=== PATIENT | female | born 1950 | race Caucasian/White ===

== ENCOUNTER → 2019-02-28 | Day surgery (SDC) | payer OTHER ==
--- OUTSIDE RECORDS SUMMARY | 2019-02-28 10:45 | XMS REPORT | Continuity of Care Document ---
:1950 Author Organization [employer] Care Team Providers Name Role Phone [employer] Unavailable Unavailable Problems No Data Provided for This Section Medications No Data Provided for This Section Allergies, Adverse Reactions, Alerts No Known Medication Allergies Immunizations No Data Provided for This Section Results No Data Provided for This Section Pathology Reports No Data Provided for This Section Diagnostic Reports No Data Provided for This Section Consultation Notes No Data Provided for This Section Discharge Summaries No Data Provided for This Section History and Physicals No Data Provided for This Section Vital Signs No Data Provided for This Section Encounters Location Location Encounter Encounter Reason Attending ADM DC Status Source Details Type Number For Provider Date Date Visit Outpatient [id number] [place] 04/12 [facility] Outpatient [id number] [place] 04/11 [facility] [place] Procedures No Data Provided for This Section Assessment and Plan No Data Provided for This Section Plan of Care No Data Provided for This Section Social History No Data Provided for This Section Family History No Data Provided for This Section Advance Directives No Data Provided for This Section Functional Status No Data Provided for This Section
--- OUTSIDE RECORDS SUMMARY | 2019-02-28 10:45 | XMS REPORT | Clinical Summary ---
:1950 Author Organization [facility] Address [address] [place] [address] Care Team Providers Name Role Phone Sung Cuadra MD Primary Care Provider Allergies Active Allergy Reactions Severity Noted Date Comments Iodine Itching 06/01/2016 IV / internal iodine causing itching Medications Medication Sig Dispensed Refills Start Date End Date Status pantoprazole Take 20 mg by 0 Active (PROTONIX) 20 MG EC mouth daily. tablet doxepin (SINEquan) 10 Take 10 mg by 0 Active MG capsule mouth nightly. atorvastatin Take 20 mg by 0 Active (LIPITOR) 20 MG mouth daily. tablet folic acid (FOLVITE) Take 1 mg by 0 Active 1 MG tablet mouth daily. raloxifene (EVISTA) Take 60 mg by 0 Active 60 mg tablet mouth daily. betaxolol 1 drop 2 0 Active (BETOPTIC-S) 0.25 % (two) times a ophthalmic suspension day. latanoprost (XALATAN) 1 drop 0 Active 0.005 % ophthalmic nightly. solution levothyroxine Take 75 mcg 0 Active (SYNTHROID) 75 mcg by mouth tablet every morning. mometasone-formoterol Inhale 2 0 Active (DULERA) 100-5 puffs 2 (two) mcg/actuation inhaler times a day. ALBUTEROL SULFATE Inhale. 0 Active (PROAIR HFA INHL) meloxicam (MOBIC) 7.5 Take 7.5 mg 0 Active mg tablet by mouth daily. FOLIC Take by 0 Active ACID/MULTIVIT-MIN/LUT mouth. EIN (CENTRUM SILVER ORAL) ascorbic acid, Take 500 mg 0 Active vitamin C, (ascorbic by mouth acid with marline hips) daily. 500 MG tablet cholecalciferol, Take 2,000 0 Active vitamin D3, (VITAMIN Units by D3) 2,000 unit mouth daily. capsule capsule DOCOSAHEXANOIC Take by 0 Active ACID/EPA (FISH OIL mouth. 1000 ORAL) mg COQ10, LIPOSOMAL Take by 0 Active UBIQUINOL, ORAL mouth. biotin 1 mg tablet Take 1,000 0 Active mcg by mouth 3 (three) times a day. POLYETHYLENE GLYCOL Take by 0 Active 3350 (MIRALAX ORAL) mouth. LACTOBACILLUS Take by 0 Active ACIDOPHILUS mouth. (PROBIOTIC ORAL) GUAIFENESIN/PSEUDOEPH Take by 0 Active EDRNE HCL (MUCINEX D mouth. ORAL) omega-3 acid ethyl 0 04/19/2018 Active esters (LOVAZA) 1 gram capsule cetirizine (ZyrTEC) Take 10 mg by 0 Active 10 MG tablet mouth daily. ranitidine (ZANTAC) Take 1 90 capsule 1 09/11/2018 Active 300 MG capsule capsule (300 mg total) by mouth every evening. PSEUDOEPHEDRINE HCL Take by 0 Discontinued (SUDAFED ORAL) mouth. prn 9 NON FORMULARY Hydroeye 2 0 Discontinued caps daily 9 ranitidine (ZANTAC) Take 300 mg 3 04/18/2018 Discontinued 300 MG capsule by mouth 2 9 (two) times a day. lifitegrast (XIIDRA Apply to eye. 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/2018 Acquired hypothyroidism 05/23/2017 Other osteoporosis without current pathological fracture 05/23/2017 Chest pain 10/24/2016 Encounters Date Type Specialty Care Team Description 11/27/2018 Hospital Encounter Radiology Mata Saabular darshan Mariano MD (nontoxic) 11/25/2018 Telephone Endocrinology Mata Saab MD 11/20/2018 Orders Only Endocrinology Ashvin, Acquired hypothyroidism ( Primary Dx); [place] More Multinodular goiter (nontoxic) 11/18/2018 Hospital Encounter Radiology Mata Saab Acquired hypothyroidism; MD [place] Multinodular goiter (nontoxic) 11/18/2018 Ancillary Procedure Mtaa Saab Age-related MD [place] osteoporosis without current pathological fracture 11/18/2018 Office Visit Endocrinology Mata Saab Acquired hypothyroidism (Primary Dx); MD [place] Other osteoporosis without current pathological fracture; Multinodular goiter (nontoxic) 11/15/2018 Telephone Endocrinology Blanka Bah 10/28/2018 Orders Only Endocrinology Nilo Lock hypothyroidism ( Primary Dx); [place] More Age-related osteoporosis without current pathological fracture 10/16/2018 Hospital Encounter Radiology Pam Mathews Abnormal CT scan of MD [place] lung 10/09/2018 Transcribe Orders Access Pam Mathews Abnormal CT scan of MD [place] lung (Primary Dx) 09/11/2018 Orders Only Gastroenterology Tayla Darby, ZOË 2018 Office Visit Otolaryngology Tika Brady Vocal cord atrophy MD [place] (Primary Dx) 05/09/2018 Office Visit Otolaryngology Tika Brady Vocal cord atrophy ( Primary Dx); MD [place] 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 Hospital Encounter Radiology Deep Hercules Gastroesophageal reflux MD Nabil disease without esophagitis 04/18/2018 Telephone Gastroenterology Minal Hanson [employer]UCK [employer] 04/17/2018 Orders Only Gastroenterology Mandi Valenzuela Gastroesophageal reflux [place]INA Dai disease without esophagitis (Primary Dx) 04/16/2018 Hospital Encounter Radiology Deep Hercules Gastroesophageal reflux disease without esophagitis; MD [place]abil Hoarseness of voice 04/12/2018 Telephone Gastroenterology Minal Hanson TRUCK [employer] 04/11/2018 Lab Lab Deep Hercules MD 04/11/2018 Documentation Gastroenterology Deep Hercules MD 04/10/2018 Telephone Gastroenterology Mandi Valenzuela MA 04/08/2018 Orders Only Gastroenterology Mandi Valenzuela MA 04/08/2018 Telephone Gastroenterology Minal Hanson, TRUCK F[employer]ER 03/25/2018 Office Visit Gastroenterology Deep Hecrules Gastroesophageal reflux disease without esophagitis (Primary Dx); MD Nabil Early satiety; Hoarseness of voice after 02/27/2018 Family History Medical History Relation Name Comments Stroke Father Prasad Daniel Diabetes Maternal Grandfather Sykes Rozina probably type 1 Hypertension Maternal Grandmother Kylie Handy very high Breast cancer Mother Radha Daniel Cancer Mother Radha Daniel breast Diabetes Paternal Aunt Vanessa Mccray type 2 Hypertension Sister Doyle Ferguson Relation Name Status Comments Father Prasad Daniel Maternal Grandfather Onel Handy Maternal Grandmother Kylie Handy Mother Radha Daniel Paternal Aunt Vanessa Mccray Sister Doyle Ferguson Social History Tobacco Use Types Packs/Day Years Used Date Never Smoker Smokeless Tobacco: Never Used Alcohol Use Drinks/Week oz/Week Comments No Sex Assigned at Date Recorded Not on file Job Start Date Occupation Industry Not on file Not on file Not on file Travel History Travel Start Travel End No recent travel history available. Last Filed Vital Signs Vital Sign Reading Time Taken Blood Pressure 142/65 11/27/2018 2:30 PM CDT Pulse 65 11/27/2018 2:30 PM CDT Temperature - - Respiratory Rate 16 11/27/2018 2:30 PM CDT Oxygen Saturation 100% 11/27/2018 2:30 PM CDT Inhaled Oxygen Concentration - - Weight 51.7 kg (114 lb) 11/18/2018 10:00 AM CDT Height 158 cm (5' 2.2") 11/18/2018 10:00 AM CDT Body Mass Index 20.72 11/18/2018 10:00 AM CDT Plan of Treatment Date Type Specialty Care Team Description 03/10/2019 Office Visit Gastroenterology Deep Hercules MD [address] [id number] Health Maintenance Due Date Last Done Comments BREAST CANCER SCREENING 1998 COLONOSCOPY SCREENING 1998 SHINGLES VACCINES (#1) 1998 65+ PNEUMOCOCCAL VACCINE (1 of 2 - PCV13) 2013 INFLUENZA VACCINE 04/03/2019 Procedures Procedure Name Priority Date/Time Associated Diagnosis Comments CYTOLOGY Routine 11/27/2018 3:53 Results for this (NON-GYNECOLOGICAL PM CDT procedure are in ) REQUEST the results section. US THYROID BIOPSY Routine 11/27/2018 2:10 Multinodular goiter Results for this FNA PM CDT (nontoxic) procedure are in the results section. US THYROID Routine 11/18/2018 1:03 Acquired hypothyroidism Results for this PM CDT Multinodular goiter procedure are in (nontoxic) the results section. BONE DENSITY Routine 11/18/2018 9:51 Age-related osteoporosis Results for this AM CDT without current procedure are in pathological fracture the results section. CT CHEST WO Routine 10/16/2018 4:[address] scan of lung Results for this CONTRAST PM ENGINE REPAIRER procedure are in the results section. NM GASTRIC Routine 05/01/2018 12:39 Gastroesophageal reflux Results for this EMPTYING PM CDT disease without procedure are in esophagitis the results section. FL MODIFIED BARIUM Routine 04/16/2018 1:32 Gastroesophageal reflux Results for this SWALLOW PM CDT disease without procedure are in esophagitis the results Hoarseness of voice section. SURGICAL PATHOLOGY Routine 04/11/2018 4:31 Results for this REQUEST PM CDT procedure are in the results section. after 02/27/2018 Results Cytology (non-gynecological) request (11/27/2018 3:53 PM CDT) [facility] DEPARTMENT OF PATHOLOGY AND GENOMIC MEDICINE Cytology See link below [facility] DEPART[facility] OF (non-gynecological) for PDF Lab PATHOLOGY AND report Report GENOMIC MEDICINE Result status This is Final [facility] DEPARTMENT OF Report for PATHOLOGY AND [id number] GENOMIC MEDICINE Specimen Performing Organization Address City/State/Zipcode Phone Number [facility] DEPARTMENT OF PATHOLOGY AND [address] [place] [address] GENOMIC MEDICINE US Thyroid Biopsy FNA (11/27/2018 2:10 PM CDT) Specimen Narrative Performed At EXAMINATION:US THRYOID BIOPSY FNA [facility] CLINICAL HISTORY:E04.2 Nontoxic multinodular goiter, Thyroid nodule TECHNIQUE: The risks, benefits, and alternatives were discussed with the patient and written informed consent was obtained. A site for needle injury was selected and the skin was prepped and draped in the usual sterile fashion. After local administration of 1% buffered lidocaine, using sterile technique and under real-time ultrasound guidance, FNA biopsy of a 1.8 cm mid right thyroid nodule was performed.The specimens were reviewed with pathology and deemed adequate. Patient tolerated the procedure without difficulty and left the department in good condition. No immediate postprocedural consultations. Patient has been instructed to follow-up with for the results of the biopsy.The undersigned performed the entire procedure. IMPRESSION: Technically successful ultrasound-guided thyroid nodule FNA biopsy as detailed above. [facility]-[id number] Procedure Note Hm Interface, Radiology Results Incoming - 11/27/2018 4:12 PM CDT EXAMINATION: US THRYOID BIOPSY FNA CLINICAL HISTORY: E04.2 Nontoxic multinodular goiter, Thyroid nodule TECHNIQUE: The risks, benefits, and alternatives were discussed with the patient and written informed consent was obtained. A site for needle injury was selected and the skin was prepped and draped in the usual sterile fashion. After local administration of 1% buffered lidocaine, using sterile technique and under real-time ultrasound guidance, FNA biopsy of a 1.8 cm mid right thyroid nodule was performed. The specimens were reviewed with pathology and deemed adequate. Patient tolerated the procedure without difficulty and left the department in good condition. No immediate postprocedural consultations. Patient has been instructed to follow-up with for the results of the biopsy. The undersigned performed the entire procedure. IMPRESSION: Technically successful ultrasound-guided thyroid nodule FNA biopsy as detailed above. [facility]-[id number] Performing Organization Address City/State/Zipcode Phone Number [facility] [address] [place] [address] [place] Thyroid (11/18/2018 1:03 PM CDT) Specimen Narrative Performed At THYROID [facility] CLINICAL HISTORY:E03.9 Hypothyroidismunspecified, E04.2 Nontoxic multinodular goiter, multinodular goiter right COMPARISON:None. FINDINGS: RIGHT THYROID LOBE: *Measurements:2.1 x 2.1 x 5.4 cm *The right thyroid is heterogeneous with 2 well-circumscribed thyroid nodules. Nodule # 1 Location:Lower pole Size: 2.4 cm Composition: Solid or nearly completelysolid - 2 points Echogenicity: Hyper- or Isoechoic - 1 point Shape: Wider than tall - 0 points Margins: Smooth - 0 points Echogenic foci: None or large comet-tails - 0 points ACR TI-RADS / RECOMMENDATION: TR 3 - MILDLY SUSPICIOUS(3 points) FNA if > or=2.5 cm Followif> or=1.5 cm Nodule # 2 Location:Posterior midpole Size: 1.8 cm Composition: Solid or nearly completelysolid - 2 points Echogenicity: Hypoechoic - 2 points Shape: Wider than tall - 0 points Margins: Smooth - 0 points Echogenic foci: None or large comet-tails - 0 points ACR TI-RADS / RECOMMENDATION: TR 4 - MODERATELY SUSPICIOUS(4-6 points) FNA if > or=1.5 cm Follow if > or=1 cm ISTHMUS: *Unremarkable. LEFT THYROID LOBE: *Measurements:1.3 x 1.3 x 4.2 cm *Left thyroid is heterogeneous with multiple thyroid nodules. Nodule # 3 Location:Posterior midpole Size: 1.0 cm Composition: Solid or nearly completelysolid - 2 points Echogenicity: Hyper- or Isoechoic - 1 point Shape: Wider than tall - 0 points Margins: Smooth - 0 points Echogenic foci: None or large comet-tails - 0 points ACR TI-RADS / RECOMMENDATION: TR 3 - MILDLY SUSPICIOUS(3 points) FNA if > or=2.5 cm Followif> or=1.5 cm Nodule # 4 Location:Anterior midpole lateral Size: 0.9 cm Composition: Solid or nearly completelysolid - 2 points Echogenicity: Hyper- or Isoechoic - 1 point Shape: Wider than tall - 0 points Margins: Smooth - 0 points Echogenic foci: None or large comet-tails - 0 points ACR TI-RADS / RECOMMENDATION: TR 3 - MILDLY SUSPICIOUS(3 points) FNA if > or=2.5 cm Followif> or=1.5 cm OTHER FINDINGS: *No cervical adenopathy. IMPRESSION: Enlarged heterogeneous thyroid with multiple thyroid nodules, most mildly suspicious and most consistent with multinodular goiter. A 1.8 cm moderately suspicious nodule meets criterion for biopsy in the right posterior midpole. FNA is recommended. Please see report. *[facility]-[id number] Procedure Note [facility], Radiology Results Incoming - 11/18/2018 2:52 PM CDT US THYROID CLINICAL HISTORY: E03.9 Hypothyroidism unspecified, E04.2 Nontoxic multinodular goiter, multinodular goiter right COMPARISON: None. FINDINGS: RIGHT THYROID LOBE: * Measurements: 2.1 x 2.1 x 5.4 cm * The right thyroid is heterogeneous with 2 well-circumscribed thyroid nodules. Nodule # 1 Location: Lower pole Size: 2.4 cm Composition: Solid or nearly completelysolid - 2 points Echogenicity: Hyper- or Isoechoic - 1 point Shape: Wider than tall - 0 points Margins: Smooth - 0 points Echogenic foci: None or large comet-tails - 0 points ACR TI-RADS / RECOMMENDATION: TR 3 - MILDLY SUSPICIOUS (3 points) FNA if > or=2.5 cm Followif > or=1.5 cm Nodule # 2 Location: Posterior midpole Size: 1.8 cm Composition: Solid or nearly completelysolid - 2 points Echogenicity: Hypoechoic - 2 points Shape: Wider than tall - 0 points Margins: Smooth - 0 points Echogenic foci: None or large comet-tails - 0 points ACR TI-RADS / RECOMMENDATION: TR 4 - MODERATELY SUSPICIOUS (4-6 points) FNA if > or=1.5 cm Follow if > or=1 cm ISTHMUS: * Unremarkable. LEFT THYROID LOBE: * Measurements: 1.3 x 1.3 x 4.2 cm * Left thyroid is heterogeneous with multiple thyroid nodules. Nodule # 3 Location: Posterior midpole Size: 1.0 cm Composition: Solid or nearly completelysolid - 2 points Echogenicity: Hyper- or Isoechoic - 1 point Shape: Wider than tall - 0 points Margins: Smooth - 0 points Echogenic foci: None or large comet-tails - 0 points ACR TI-RADS / RECOMMENDATION: TR 3 - MILDLY SUSPICIOUS (3 points) FNA if > or=2.5 cm Followif > or=1.5 cm Nodule # 4 Location: Anterior midpole lateral Size: 0.9 cm Composition: Solid or nearly completelysolid - 2 points Echogenicity: Hyper- or Isoechoic - 1 point Shape: Wider than tall - 0 points Margins: Smooth - 0 points Echogenic foci: None or large comet-tails - 0 points ACR TI-RADS / RECOMMENDATION: TR 3 - MILDLY SUSPICIOUS (3 points) FNA if > or=2.5 cm Followif > or=1.5 cm OTHER FINDINGS: * No cervical adenopathy. IMPRESSION: Enlarged heterogeneous thyroid with multiple thyroid nodules, most mildly suspicious and most consistent with multinodular goiter. A 1.8 cm moderately suspicious nodule meets criterion for biopsy in the right posterior midpole. FNA is recommended. Please see report. *[id number] Performing Organization Address City/State/Zipcode Phone Number [employer] [address] [place] [address] Bone Density (11/18/2018 9:51 AM CDT) Specimen Narrative Performed At [facility] [employer] [address] [facility]. [address] [place] [address] Bone Density Report Name: Jasmine Lal Sex: Female Age: 68 Ethnicity: White Height: 62.2 in Referring Provider: MATA SAAB Date of : 1950 Weight: 114.0lb Indication: Osteopenia; prior fracture Accession number: [id number] Bone Density: Exam date 11/18/2018 Region BMD (g/cm2) T-score Z-score Classification AP Spine(L1, L4) 0.852 -1.70.4 Osteopenia Femoral Neck(Left) 0.578 -2.4 -0.6 Osteopenia Total Hip(Left) 0.728 -1.8 -0.2 Osteopenia Femoral Neck(Right) 0.620 -2.1 -0.3 Osteopenia Total Hip(Right) 0.750 -1.6 -0.1 Osteopenia Total Hip Mean 0.739 -1.7 -0.2 Osteopenia World Health Organization criteria for BMD impression classify patients as Normal (T-score at or above 1.0), Osteopenia (T-score between 1.0 and 2.5), or Osteoporosis (T-score at or below 2.5). 10-year Fracture Risk: Major Osteoporotic Fracture 19% Hip Fracture 4.7% Reported Risk Factors: [place] (), T-score(WHO)=-2.3, BMI=20.7, previous fracture FRAX Version 3.08. Fracture probability calculated for an untreated patient. Fracture probability may be lower if the patient has received treatment. Previous Exams: Region Exam Date Age BMD (g/cm2) T-score BMD Change vs. Baseline BMD Change vs. Previous AP Spine(L1, L4) 11/18/2018 68 0.852 -1.7 1.9% 0.7% 05/23/2017 66 0.846 -1.7 1.2% 1.2% 03/22/2015 64 0.836 -1.8 Total Hip(Left) 11/18/2018 68 0.728 -1.8 -5.4%# -2.8% 05/23/2017 66 0.750 -1.6 -2.6%# -1.0% 03/22/2015 64 0.757 -1.5 -1.7%# -1.7%# 03/25/2012 61 0.770 -1.4 Total Hip(Right) 11/18/2018 68 0.750 -1.6 -2.9%# -1.3% 05/23/2017 66 0.760 -1.5 -1.6%# 1.8% 03/22/2015 64 0.746 -1.6 -3.3%# -3.3%# 03/30/2012 61 0.772 -1.4 *Denotes significance at 95% confidence level, LSC for AP Spine=0.022 g/cm2,LSC for Total Hip=0.027 g/cm2 # Denotes dissimilar scan types or analysis methods Impression: Degenerative changes limit interpretation at the spine. L1, L4 were used for analysis. The patient has low bone mass, based on the Left Femoral Neck T-score. The patient has an elevated estimated ten-year risk of hip fracture of 4.7% and an estimated ten-year risk of major fracture of 19%, based on the WHO FRAX algorithm. The patient has risk factors, including: previous fracture. Monitoring: As compared with the study of 2017: No significant bone loss was observed. Discussion: BONE DENSITY IS LOW AT ONE OR MORE SKELETAL SITES. THE PATIENT'S BMD AND CLINICAL RISK FACTORS CONTRIBUTE TO THIS PATIENT'S INCREASED RISK OF FRACTURE. This patient's lowest T-score is low at one or more skeletal sites.It meets the World Health Organization's (WHO) criteria for low bone mass (T-score between -1.0 and -2.5). The patient's 10-year risk of hip fracture as calculated by FRAX exceeds the threshold where pharmacological therapy is recommended by the National Osteoporosis Foundation 3% or more for a hip fracture and 20% or more for a major fracture (NOF).However, all treatment decisions require clinical judgment and consideration of individual patient factors, including patient preferences, comorbidities, previous drug use, risk factors not captured in the FRAX model (e.g., frailty, falls, vitamin D deficiency, increased bone turnover, interval significant decline in bone density) and possible under or overestimation of fracture risk by FRAX. The patient should follow a healthful lifestyle (good nutrition with adequate calcium and vitamin D, and appropriate weight-bearing exercise). Follow-Up: Consider a repeat BMD and Vertebral Fracture Assessment (VFA) exam in 2 years or sooner if medically necessary, to reassess this patient's status. Reported by: Mata Saab MD, [facility] [place], CCD on 11/19/2018 3:30:00 PM. Performing Organization Address City/State/Zipcode Phone Number [facility] [address] [place] [address] CT Chest Wo Contrast (10/16/2018 4:37 PM ENGINE REPAIRER) Specimen Narrative Performed At EXAMINATION: CT CHEST WO CONTRAST [facility] CLINICAL HISTORY: R91.8 Other nonspecific abnormal finding of lung field, R91.8 TECHNIQUE:Axial images of the chest were obtained without intravenous contrast. The lack of intravenous contrast reduces the sensitivity of the exam and evaluating vasculature. CT imaging was performed with iterative reconstruction technique and/or automated exposure control to reduce radiation dose. COMPARISON:10/12/2017 FINDINGS: Lungs and airways: There is unchanged nodular biapical pleural-parenchymal scarring. Unchanged complete right middle lobe collapse. Scattered foci of bronchiectasis, greatest in the anterior right upper lobe and inferior lingula, with a small amount of surrounding consolidation and nodularity, minimally progressed in these locations compared to 10/12/2017. Additional scattered foci of clustered tree-in-bud and centrilobular nodularity without associated bronchiectasis, for example lateral basilar segment left lower lobe, appear unchanged. Clustered calcified granulomas in the lateral right upper lobe with adjacent unchanged scarring. A few additional calcified and noncalcified granulomas are also unchanged. Pleura: No pleural effusion or pneumothorax. Fat-containing Bochdalek hernia is unchanged, in the posterior right costophrenic angle. Mediastinum and lymph nodes: Partially calcified but nonenlarged mediastinal and right hilar lymph nodes, compatible with remote granulomatous disease. Heterogenous thyroid gland, similar to the prior examination. Cardiovascular: Scattered vascular calcifications. Upper abdomen: Calcified splenic granulomas. Multiple bilateral renal cysts measuring up to 3 cm. Bones: Posttreatment changes in the right axilla. Mild spondylosis. IMPRESSION: 1.There are multiple nodular opacities, many of which are unchanged and/or partially calcified and likely represent benign granulomas. 2.Cylindrical bronchiectasis in the anterior segment right upper lobe and inferior lingula demonstrates slightly increased surrounding consolidation and nodularity compared to 10/12/2017, which could represent foci of chronic microbial colonization (e.g. nontuberculous mycobacterial species). 3.Chronic complete right middle lobe collapse. [facility]-[id number] Procedure Note Hm Interface, Radiology Results Incoming - 10/16/2018 4:48 PM ENGINE REPAIRER EXAMINATION: CT CHEST WO CONTRAST CLINICAL HISTORY: R91.8 Other nonspecific abnormal finding of lung field, R91.8 TECHNIQUE: Axial images of the chest were obtained without intravenous contrast. The lack of intravenous contrast reduces the sensitivity of the exam and evaluating vasculature. CT imaging was performed with iterative reconstruction technique and/or automated exposure control to reduce radiation dose. COMPARISON: 10/12/2017 FINDINGS: Lungs and airways: There is unchanged nodular biapical pleural-parenchymal scarring. Unchanged complete right middle lobe collapse. Scattered foci of bronchiectasis, greatest in the anterior right upper lobe and inferior lingula, with a small amount of surrounding consolidation and nodularity, minimally progressed in these locations compared to 10/12/2017. Additional scattered foci of clustered tree-in- bud and centrilobular nodularity without associated bronchiectasis, for example lateral basilar segment left lower lobe, appear unchanged. Clustered calcified granulomas in the lateral right upper lobe with adjacent unchanged scarring. A few additional calcified and noncalcified granulomas are also unchanged. Pleura: No pleural effusion or pneumothorax. Fat-containing Bochdalek hernia is unchanged, in the posterior right costophrenic angle. Mediastinum and lymph nodes: Partially calcified but nonenlarged mediastinal and right hilar lymph nodes, compatible with remote granulomatous disease. Heterogenous thyroid gland, similar to the prior examination. Cardiovascular: Scattered vascular calcifications. Upper abdomen: Calcified splenic granulomas. Multiple bilateral renal cysts measuring up to 3 cm. Bones: Posttreatment changes in the right axilla. Mild spondylosis. IMPRESSION: 1. There are multiple nodular opacities, many of which are unchanged and/or partially calcified and likely represent benign granulomas. 2. Cylindrical bronchiectasis in the anterior segment right upper lobe and inferior lingula demonstrates slightly increased surrounding consolidation and nodularity compared to 10/12/2017, which could represent foci of chronic microbial colonization (e.g. nontuberculous mycobacterial species). 3. Chronic complete right middle lobe collapse. [facility]-[id number] Performing Organization Address City/State/Zipcode Phone Number [facility] [address] [place] [address] [place] Gastric Emptying (05/01/2018 12:39 PM CDT) Specimen Narrative Performed At Procedure:[place] GASTRIC EMPTYING [facility] Clinical History:K21.9 Gastro-esophageal reflux disease without esophagitis, acid reflux Technique: 0.8 millicuries of [id number] colloid were mixed with an egg and cooked. The egg was fed to the patient and dynamic imaging of the abdomen in the anterior and posterior projections was performed for 90 minutes. Quantification of gastric emptying was performed using the geometric mean of the anterior and posterior projections. Delayed imaging at 4 hours was also performed. Findings: 1st 90 minutes (supine position):Gastric emptying half time=71 minutes (normal is <100 minutes). 4 hour delayed imaging:Gastric retention=1% (normal is <10%) Impression: Normal gastric emptying. [facility]-[id number] Procedure Note Interface, Radiology Results Incoming - 05/01/2018 3:09 PM CDT Procedure: NM GASTRIC EMPTYING Clinical History: K21.9 Gastro-esophageal reflux disease without esophagitis, acid reflux Technique: 0.8 millicuries of [id number] colloid were mixed with an egg and cooked. The egg was fed to the patient and dynamic imaging of the abdomen in the anterior and posterior projections was performed for 90 minutes. Quantification of gastric emptying was performed using the geometric mean of the anterior and posterior projections. Delayed imaging at 4 hours was also performed. Findings: 1st 90 minutes (supine position): Gastric emptying half time=71 minutes ( normal is <100 minutes). 4 hour delayed imaging: Gastric retention=1% (normal is <10%) Impression: Normal gastric emptying. [facility]-[id number] Performing Organization Address City/[facility]/Zipcode Phone Number [facility] [address] [place] [address] [place] Modified Barium Swallow (04/16/2018 1:32 PM CDT) Specimen Narrative Performed At EXAMINATION:[place] MODIFIED BARIUM SWALLOW [facility] CLINICAL HISTORY:Dysphagia unspecified; choking sensation COMPARISON:None. RADI[facility] EXPOSURE: 3.35 mGy air kerma TECHNIQUE: The patient swallowed varying consistencies of barium under direct lateral fluoroscopic evaluation. The study was performed in conjunction with speech pathology. IMPRESSION: Normal study. The patient swallowed each consistency without evidence of laryngeal penetration or aspiration. Please refer to Speech Pathology report for further details. [facility]-[id number] Procedure Note Interface, Radiology Results Incoming - 04/16/2018 2:31 PM CDT EXAMINATION: [place] MODIFIED BARIUM SWALLOW CLINICAL HISTORY: Dysphagia unspecified; choking sensation COMPARISON: None. RADIATION EXPOSURE: 3.35 mGy air kerma TECHNIQUE: The patient swallowed varying consistencies of barium under direct lateral fluoroscopic evaluation. The study was performed in conjunction with speech pathology. IMPRESSION: Normal study. The patient swallowed each consistency without evidence of laryngeal penetration or aspiration. Please refer to Speech Pathology report for further details. [facility]-[id number] Performing Organization Address [facility] Phone Number [facility] [address] [place] [address] Surgical pathology request (04/11/2018 4:31 PM CDT) [facility] DEPARTMENT OF PATHOLOGY AND GENOMIC MEDICINE Surgical pathology See link below [facility] DEPARTMENT OF report for PDF Lab PATHOLOGY AND Report GENOMIC MEDICINE Result status This is Final [facility] DEPARTMENT OF Report to PATHOLOGY AND [id number] GENOMIC MEDICINE Specimen Performing Organization Address City/[facility]/Zipcode Phone Number [facility] DEPARTMENT OF PATHOLOGY AND [address] [place] [address] GENOMIC MEDICINE after 02/27/2018 Insurance Payer Benefit Plan / Subscriber ID Effective Dates Phone Address Type Group MEDICARE MEDICARE PART A AND xxxxxxxxxxx 2013-[place], [place] Medicare B nt A[employer]NA [employer] xxxxxxxxx 2000-[address] ([place]) [place] [address] Advance Directives Patient has advance care planning documents on file. For more information, please contact:Onel Mejia[address] [place] [address]
--- OUTSIDE RECORDS SUMMARY | 2019-02-28 10:45 | XMS REPORT | Clinical Summary ---
:1950 Author Organization [facility] Address [address] [place] [address] Care Team Providers Name Role Phone Unavailable Primary Care Provider Unavailable Allergies Not on File Medications Not on file Active Problems Not on file Social History Tobacco Use Types Packs/Day Years Used Date Never Assessed Sex Assigned at Date Recorded Not on file Job Start Date Occupation Industry Not on file Not on file Not on file Travel History Travel Start Travel End No recent travel history available. Last Filed Vital Signs Not on file Plan of Treatment Not on file Results Not on fileafter 02/27/2018
--- NOTE | 2019-02-28 14:20 | RAD REPORT ---
EXAM DESCRIPTION: US - BREAST/AXILLA, LIMITED - 02/28/2019 11:27 am CLINICAL HISTORY: Breast mass. COMPARISON: February 17, 2019 IMPRESSION The patient presented for a ultrasound guided core biopsy of a 5 mm hypoechoic structure within the perihilar region of the right breast. On the current ultrasound it is uncertain whether this represents a mass or simply a prominent nipple -air areolar complex which gives the appearance of a mass. As the patient has little breast tissue resulting in the chest wall being near this area rather than the biopsy the current recommendation is that the patient have an MRI breast to determine if a mass i s truly present. If a mass is confirmed than ultrasound guided core biopsy would then be the next sigrid p. If the MRI is negative no further workup would required This was discussed with the patient in depth. BI-RADS category 0, incomplete.
== END ==
LOC: DS 10:31
PROVIDERS: ATTEND Clinical Nurse Specialist Women's Health
DX: N63.0 Unspecified lump in unspecified breast (principal); Z85.3 Personal history of malignant neoplasm of breast
CPT/HCPCS: 76642